=== PATIENT | female | born 1980 | race Caucasian/White ===

== ENCOUNTER 2019-11-06 02:46 | Emergency (ER) | payer BC ==
[~2019-11-06] VITALS: Ht 167.6 cm; Wt 62.6 kg
[2019-11-06 02:50] VITALS: BP 201/127
[2019-11-06] MEDS ORDERED: methylPREDNISolone SOD SUCC PF 125 MG/2 ML VIAL. IM ONE (03:15)
[2019-11-06] MEDS ORDERED: ORPHENADRINE CITRATE 60 MG/2 ML VIAL. IM ONE (03:15)
[2019-11-06] MEDS ORDERED: MORPHINE SULFATE 10 MG/ML VIAL. IM ONE (03:15)
[2019-11-06] MEDS ORDERED: HYDR-3135 PO (04:34)
--- NOTE | 2019-11-06 04:34 | PHYS DOC ---
Past Medical History Past Medical History: Asthma, Other Additional Past Medical Histor: Compression Fx L3-L5 Past Surgical History: , Hysterectomy, Tonsillectomy Alcohol Use: Occasionally Drug Use: None Adult General Chief Complaint Chief Complaint: LOWER BACK PAIN OR INJURY [facility] HPI Patient is a 39 year old male who presented to ER today for evaluation of lower back pain started 2 days ago. patient is on Flexeril and naproxen but had taken this medication did not get better. Patient denies any bowel or bladder incontinence. Patient is scheduled to see her pain doctor on this coming Wednesday. Patient has history of low back problem, had MRI of her lumbar spine on October 23 2019 showed some disc problem at L3/L4, L5/S1 AREA. He had been treated by a chiropractor recently. Patient says she had been doing okay so she started doing upper body exercise lately. 2 days ago she started having low back pain that radiated to her leg. She denies any injury to her back. All other ROS is negative unless otherwise noted in HPI Review of Systems Review of Systems See above Current Medications Current Medications Current Medications Medications (Trade) Dose Ordered Sig/Yvonne Start Time Stop Time Status Last Admin Dose Admin Acetaminophen/ Hydrocodone Bitart (Lortab 10/325) 1 tab 1X ONCE 11/06/19 05:00 11/06/19 05:01 DC 11/06/19 05:14 1 TAB Fentanyl Citrate (Fentanyl 2ml Vial) 75 mcg 1X ONCE 11/06/19 05:00 11/06/19 05:01 DC Methylprednisolone Sodium Succinate (SOLU-Medrol 125MG VIAL) 125 mg 1X ONCE 11/06/19 03:15 11/06/19 03:16 DC 11/06/19 03:24 125 MG Morphine Sulfate (Morphine Sulfate) 5 mg 1X ONCE 11/06/19 03:15 11/06/19 03:16 DC 11/06/19 03:24 5 MG Ondansetron HCl (Zofran Odt) 4 mg STK-MED ONCE 11/06/19 05:11 11/06/19 05:11 DC Orphenadrine Citrate (Norflex) 60 mg 1X ONCE 11/06/19 03:15 11/06/19 03:16 DC 11/06/19 03:25 60 MG Allergies Allergies Allergies Coded Allergies Type Severity Reaction Last Updated Verified Penicillins Allergy Intermediate 11/06/19 Yes Physical Exam Physical Exam See above Constitutional: Well developed, well nourished, no acute distress, non-toxic appearance. APPEARED IN PAIN, CRYING. HENT: Normocephalic, atraumatic, bilateral external ears normal, oropharynx moist, no oral exudates, nose normal. [] Eyes: PERRLA, EOMI, conjunctiva normal, no discharge. [] Neck: Normal range of motion, no tenderness, supple, no stridor. [] Cardiovascular:Heart rate regular rhythm, no murmur [] Lungs & Thorax: Bilateral breath sounds clear to auscultation [] Abdomen: Bowel sounds normal, soft, no tenderness, no masses, no pulsatile masses. [] Skin: Warm, dry, no erythema, no rash. [] Back: There is tenderness to palpation on L3/L4, L5/S1 AREA. NO BONY STEP OFF. NO SADDLE ANESTHESIA. Extremities: No tenderness, no cyanosis, no clubbing, ROM intact, no edema. [] Neurologic: Alert and oriented X 3, normal motor function, normal sensory func tion, no focal deficits noted. [] Psychologic: Affect normal, judgement normal, mood normal. [] Current Patient Data Vital Signs Vital Signs Date Time Temp Pulse Resp B/P (MAP) Pulse Ox O2 Delivery O2 Flow Rate FiO2 11/06/19 05:14 Room Air 11/06/19 02:50 98.1 92 20 201/127 (151) 97 98.1 EKG EKG [] Radiology/Procedures Radiology/Procedures [] Course & Med Decision Making Course & Med Decision Making Pertinent Labs and Imaging studies reviewed. (See chart for details) She was chronic back pain, has no this problem in her lumbar spine area, had upcoming appointment with her pain doctor, presented to ER with severe low back pain. No injury to her back recently. There is no further imaging needed at this time. sHe was given pain medication in the ER, she felt better. Patient was discharged home, she will see her pain doctor in a couple days. Dragon Disclaimer Dragon Disclaimer This electronic medical record was generated, in whole or in part, using a voice recognition dictation system. Departure Departure Impression: Primary Impression: Lower back pain Disposition: HOME, SELF-CARE Condition: STABLE Referrals: UNKNOWN PCP NAME (PCP) follow up with your pain doctor as scheduled on Wednesday. Patient Instructions: Back Pain, Adult Scripts Hydrocodone/Apap 10-325 (NORCO 10-325 TABLET) 1 Each Tablet 1 TAB PO PRN Q6HRS PRN for PAIN for 3 Days, #12 TAB 0 Refills Prov: LAQUITA PATRICIO DO 11/06/19 LAQUITA PATRICIO DO Nov 06, 2019 04:34
[2019-11-06] MEDS ORDERED: fentaNYL PF VIAL 100 MCG/2 ML VIAL IM ONE (05:00)
[2019-11-06] MEDS ORDERED: HYDROcodone/APAP 10/325 1 TAB TABLET PO ONE (05:00)
[2019-11-06] MEDS ORDERED: ONDANSETRON ODT 4 MG TAB.RAPDIS. ONE (05:11)
[2019-11-06] MEDS ORDERED: ONDANSETRON ODT 4 MG TAB.RAPDIS. PO ONE (05:30)
== END 2019-11-06 05:25 | disposition home or self-care (01) ==
LOC: ER 02:46
DX: M54.5 Low back pain (principal); J45.909 Unspecified asthma, uncomplicated; Z90.710 Acquired absence of both cervix and uterus; Z90.89 Acquired absence of other organs; Z79.899 Other long term (current) drug therapy; Z88.0 Allergy status to penicillin
CPT/HCPCS: 96372; 99284; J2270; J2360; J2930; Q0162